=== PATIENT | female | born 1995 ===

== ENCOUNTER 2021-04-11 08:16 | Inpatient (IN) | payer OTHER ==
[2021-04-11] MEDS: Lactated Ringers 1,000 ML IV SCH ×3 (15:55→19:20)
[2021-04-11] MEDS ORDERED: Sodium Chloride 0.9% 20 ML SDV IV PRN (16:02)
[2021-04-11] MEDS ORDERED: Sodium Chloride 0.9% 2.5 ML Syringe FLUSH PRN (16:02)
[2021-04-11] MEDS ORDERED: Nalbuphine 10 MG/1 ML Vial IVPUSH PRN (16:02)
[2021-04-11] MEDS ORDERED: Sodium Chloride 0.9% 10 ML Syringe FLUSH PRN (16:02)
[2021-04-11] MEDS ORDERED: Lidocaine 1% 50 ML MDV INJECT PRN (16:02)
[2021-04-11] MEDS ORDERED: Carboprost Tromethamine 250 MCG/1 ML Amp IM PRN (16:02)
[2021-04-11] MEDS ORDERED: Ondansetron 4 MG/2 ML SDV IVPUSH PRN (16:02)
[2021-04-11] MEDS ORDERED: Tranexamic Acid 1,000 MG in Sodium Chloride 0.9% 100 ML IV PRN (16:02)
[2021-04-11] MEDS ORDERED: Methylergonovine 0.2 MG/1 ML Amp IM PRN (16:02)
[2021-04-11] MEDS ORDERED: Misoprostol 200 MCG Tab PO PRN (16:02)
[2021-04-11] MEDS ORDERED: Butorphanol 1 MG/ML SDV IVPUSH PRN (16:02)
[2021-04-11] MEDS ORDERED: Water For Irrigation,Sterile 1,000 ML Container IRR PRN (16:02)
[2021-04-11] MEDS ORDERED: Oxytocin/0.9 % Sodium Chloride 30 UNIT/500 ML BAG IV SCH (16:15)
[2021-04-11] MEDS ORDERED: Bupivacaine 0.25% 10 ML SDV ONE (16:49)
[2021-04-11] MEDS ORDERED: Ropivacaine HCl/PF 200 ML ONE (16:49)
--- NOTE | 2021-04-11 17:07 | PCM.PREANE ---
Preanesthetic Assessment - Anesthesia/Transfusion/Family Hx Anesthesia History: Prior Anesthesia Without Reaction Transfusion History: No Prior Transfusion(s) - Review of Systems General: No Symptoms Pulmonary: No Symptoms Cardiovascular: No Symptoms Gastrointestinal: No Symptoms Neurological: No Symptoms Other: Reports: None - Physical Assessment Height: 5 ft 4 in Weight: 83.007 kg ASA Class: 2 Mental Status: Alert & Oriented x3 Airway Class: Mallampati = 2 Dentition: Reports: Normal Dentition Thyro-Mental Finger Breadths: 3 Mouth Opening Finger Breadths: 3 ROM/Head Extension: Full Lungs: Clear to Auscultation, Normal Respiratory Effort Cardiovascular: Regular Rate, Regular Rhythm - Lab Values: Laboratory Last Values WBC 12.17 K/uL (4.0-11.0) H 04/11/21 15:50 RBC 4.29 M/uL (4.30-5.90) L 04/11/21 15:50 Hgb 12.6 g/dL (12.0-16.0) 04/11/21 15:50 Hct 37.8 % (36.0-46.0) 04/11/21 15:50 MCV 88.1 fL (80.0-98.0) 04/11/21 15:50 MCH 29.4 pg (27.0-32.0) 04/11/21 15:50 MCHC 33.3 g/dL (31.0-37.0) 04/11/21 15:50 RDW Std Deviation 45.4 fl (28.0-62.0) 04/11/21 15:50 RDW Coeff of Alex 14 % (11.0-15.0) 04/11/21 15:50 Plt Count 179 K/uL (150-400) 04/11/21 15:50 MPV 12.80 fL (7.40-12.00) H 04/11/21 15:50 Nucleated RBC % 0.0 /100WBC 04/11/21 15:50 Nucleated RBCs # 0 K/uL 04/11/21 15:50 Blood Type A POSITIVE 04/11/21 15:50 Antibody Screen NEGATIVE 04/11/21 15:50 - Allergies Allergies/Adverse Reactions: Allergies Allergy/AdvReac Type Severity Reaction Status Date / Time No Known Allergies Allergy Verified 04/11/21 08:46 - Acknowledgements Anesthesia Type Planned: Epidural Pt an Appropriate Candidate for the Planned Anesthesia: Yes Alternatives and Risks of Anesthesia Discussed w Pt/Guardian: Yes Pt/Guardian Understands and Agrees with Anesthesia Plan: Yes 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 USE Tobacco Use Status *Q: Never Tobacco User Second Hand Smoke Exposure: No Recreational Drug Use History: No - CURRENT (IN HOUSE) MEDS Current Meds: Current Medications Butorphanol Tartrate (Butorphanol 1 Mg/Ml Sdv) 1 mg IVPUSH Q1H PRN PRN Reason: Pain (severe 7-10) Carboprost Tromethamine (Carboprost Tromethamine 250 Mcg/1 Ml Amp) 250 mcg IM ASDIRECTED PRN PRN Reason: Post Hemorrhage Lactated Ringer's (Ringers, Lactated) 1,000 mls @ 150 mls/hr IV ASDIRECTED LAURA Last Admin: 04/11/21 16:39 Dose: 500 mls/hr Documented by: Oxytocin/Sodium Chloride (Oxytocin 30 Unit In Ns 0.9% 500 Ml Premix) 30 unit in 500 mls @ 999 mls/hr IV TITRATE [facility] Tranexamic Acid 1,000 mg/ (Sodium Chloride) 110 mls @ 660 mls/hr IV ONETIME PRN PRN Reason: Bleeding Lidocaine HCl (Lidocaine 1% 50 Ml Mdv) 50 ml INJECT ONETIME PRN PRN Reason: Laceration repair Methylergonovine Maleate (Methylergonovine 0.2 Mg/1 Ml Amp) 0.2 mg IM ASDIRECTED PRN PRN Reason: Post Hemorrhage Misoprostol (Misoprostol 200 Mcg Tab) 200 mcg PO ONETIME PRN PRN Reason: Post Hemorrhage Nalbuphine HCl (Nalbuphine 10 Mg/1 Ml Vial) 10 mg IVPUSH Q1H PRN PRN Reason: Pain (severe 7-10) Ondansetron HCl (Ondansetron 4 Mg/2 Ml Sdv) 4 mg IVPUSH Q6H PRN PRN Reason: Nausea/Vomiting Sodium Chloride (Sodium Chloride 0.9% 10 Ml Syringe) 10 ml FLUSH ASDIRECTED PRN PRN Reason: Keep Vein Open Sodium Chloride (Sodium Chloride 0.9% 2.5 Ml Syringe) 2.5 ml FLUSH ASDIRECTED PRN PRN Reason: Keep Vein Open Sodium Chloride (Sodium Chloride 0.9% 20 Ml Sdv) 10 ml IV ASDIRECTED PRN PRN Reason: IV Use Sterile Water (Water For Irrigation,Sterile 1,000 Ml Container) 1,000 ml IRR ASDIRECTED PRN PRN Reason: delivery Discontinued Medications Bupivacaine HCl (Bupivacaine 0.25% 10 Ml Sdv) Confirm Administered Dose 10 ml .ROUTE .Rally SoftwareMED ONE Stop: 04/11/21 16:50 Ropivacaine (Naropin 0.2%) Confirm Administered Dose 200 mls @ as directed .ROUTE .Rally SoftwareMED ONE Stop: 04/11/21 16:50
[2021-04-11] MEDS ORDERED: ePHEDrine 50 MG/ML SDV IVPUSH PRN (17:11)
--- NOTE | 2021-04-11 17:11 | PCM.SN.2 ---
- Pre-Procedure Checklist Attending Provider Aware: Yes Chart Reviewed: Yes Consent Signed: Yes Labs Reviewed: Yes VS/FHR Reviewed: Yes Patient Identification Confirmation Method: Reports: ID Band Visual, Verbal Patient Pt an Appropriate Candidate for the Planned Anesthesia: Yes Alternatives and Risks of Anesthesia Discussed w Pt/Guardian: Yes - Procedure Procedure Start Date: 04/11/21 Procedure Start Time: 16:[address]: Reports: Blood Pressure, Heart Rate, SPO2 Functional IV: Yes Bolus Infused (fluid type and amount): LR 1,000 Safety Measures: Reports: Patient Identified, Procedure Verified, Site Verified, Procedure Time Out Patient Position: Reports: Sitting Prep: Reports: Other (chloraprep stick) Local Anesthetic: Reports: Intradermal Wheal w Lidocaine 1% Regional Placement Level: Reports: L4-5 Needle: Reports: 17 g Touhy Approach: Reports: Midline Technique: Reports: CHASIDY Plastic Syringe Parasthesia: Reports: None Fluid Obtained: Reports: None Test Dose Time: 16:42 Test Dose Medication: Reports: Lidocaine 1.5% w Epinephrine 1:200,000 Test Dose Response: Reports: Negative Loading Dose Time: 16:46 Loading Dose Medication: Bupivacaine 0.25% 10ml in 2 separate doses Loading Dose Patient Position: semi-fowlers with MARTHA Continuous Infusion Start Time: 16:54 Continuous Infusion Medication: Ropivacaine 0.2% Continuous Infusion Rate: 15 ml/hr Patient Position Post Placement: Reports: Semi-fowlers/MARTHA Post-procedure Pain Level: 0 Level Achieved: T-10 VS and FHR Monitored in Unit Post Placement: Yes Procedure End Date: 04/11/21 Procedure End Time: 17:30 Procedure Comment: Pt. tolerated procedure well.
--- NOTE | 2021-04-11 17:11 | PCM.POSTAN ---
POST ANESTHESIA ASSESSMENT - MENTAL STATUS Mental Status: Alert, Oriented - RESPIRATORY Respiratory Status: Respiratory Rate WNL, Airway Patent, O2 Saturation Stable - CARDIOVASCULAR CV Status: Pulse Rate WNL, Blood Pressure Stable - GASTROINTESTINAL GI Status: No Symptoms - POST OP HYDRATION Hydration Status: Adequate & Stable
[2021-04-11] MEDS ORDERED: Ropivacaine/PF 400 MG/200 ML PCA EPIDUR SCH (17:15)
[2021-04-11] MEDS ORDERED: Acetaminophen 500 MG Tab PO PRN (19:47)
[2021-04-11] MEDS ORDERED: Bisacodyl 10 MG Supp RECTAL PRN (19:47)
[2021-04-11] MEDS ORDERED: Ibuprofen 400 MG Tab PO PRN (19:47)
[2021-04-11] MEDS ORDERED: Lanolin 100% Cream 7 GM Tube TOP PRN (19:47)
[2021-04-11] MEDS ORDERED: oxyCODONE 5 MG Tab PO PRN (19:47)
--- NOTE | 2021-04-11 19:52 | PCM.OPNOTE ---
- General Post-Op/Procedure Note Date of Surgery/Procedure: 04/11/21 Operative Procedure(s): /2nd MLL repaired Findings: Viable female APGARs 9, 9 weight 3150 gm. Spontaneous delivery of intact placenta with 3V cord Pre Op Diagnosis: 38/3 week IUP. Active labor Post-Op Diagnosis: Same Anesthesia Technique: Epidural Primary Surgeon: Danielle Oden EBL in mLs: 300 Complications: none known Condition: Good Free Text/Narrative:: Dictation [id number]
[2021-04-11] MEDS: Ibuprofen 800 MG Tab PO PRN (20:37)
--- NOTE | 2021-04-11 20:56 | OR ---
SURGEON: Danielle Oden M.D. DATE OF PROCEDURE: 04/11/2021 PREOPERATIVE DIAGNOSES: 1. 38 and 3-week intrauterine . 2. Active labor. POSTOPERATIVE DIAGNOSES: 1. 38 and 3-week intrauterine . 2. Active labor. PROCEDURES: Spontaneous vaginal delivery, and a second-degree midline laceration repaired. PRIMARY SURGEON: Danielle Oden M.D. ANESTHESIA: Epidural. ESTIMATED BLOOD LOSS: 300 mL. COMPLICATIONS: None known. FINDINGS: Viable female. scores 9 at one minute and 9 at five minutes. Weight 3150 g. Spontaneous delivery, intact placenta, 3-vessel cord. DISPOSITION: to nursery. Mom in LDRP. PROCEDURE IN DETAIL: Lamin is a 25-year-old, G4, P 2-0-1-2 at 38- 3/7 weeks' gestational age, who presented today with regular contractions. She was admitted, routine labs were drawn, IV hydration was initiated. When she became uncomfortable and dilated to 5 to 6 cm, she underwent regional anesthesia for epidural. She became more comfortable thereafter. heart tones remained category I. She continued to labor, and shortly after 7:00 p.m., she was found to be complete, 100% effaced, +2 station. She had spontaneous rupture of membranes shortly before that with clear fluid. I was called for delivery. Upon my arrival, the patient was placed in the modified dorsal lithotomy position. She was prepped and draped in the usual aseptic manner. With the next contraction, she was able to push and deliver 's head atraumatically spontaneously, followed by anterior shoulder, posterior shoulder, and remaining body without difficulty. The 's oropharynx and nares were bulb suctioned. The infant was handed off to her mother and attending nursery staff at her side. After a delay, the cord was clamped x2 and cut. Cord arterial, cord venous, and cord blood sampling were obtained. Light pressure was applied while the placenta was delivered spontaneously intact. Vigorous fundal uterine massage was applied while 30 units of Pitocin was delivered in 500 mL of IV fluid. Upon inspection of cervix, vaginal sidewalls, and perineum, there was found to be a second-degree midline laceration. This was repaired using 3-0 Vicryl in the usual fashion. The patient tolerated the procedure well. Hemostasis remained evident. She will remain in LDRP in stable condition. to nursery. MONAE / SAMREEN /[id number]
[2021-04-11] MEDS: Acetaminophen 500 MG Tab PO PRN (22:14)
[2021-04-11] MEDS: Benzocaine/Menthol 20%-0.5% Spray 78 GM Cannister TOP PRN (22:15)
[2021-04-11] MEDS: Witch Hazel Medicated Pads 40/Jar TOP PRN (22:15)
[2021-04-12] MEDS: Ibuprofen 800 MG Tab PO PRN ×3 (02:25→16:02)
--- NOTE | 2021-04-12 07:19 | PCM48HPAN ---
Post Anesthesia Note - EVALUATION WITHIN 48HRS OF ANESTHETIC Vital Signs in Normal Range: Yes Patient Participated in Evaluation: Yes Respiratory Function Stable: Yes Airway Patent: Yes Cardiovascular Function Stable: Yes Hydration Status Stable: Yes Pain Control Satisfactory: Yes Nausea and Vomiting Control Satisfactory: Yes Mental Status Recovered: Yes Vital Signs: Last Vital Signs Temp 96.7 F L 04/12/21 04:00 Pulse 58 L 04/12/21 04:00 Resp 16 04/12/21 04:00 BP 124/74 04/12/21 04:00 Pulse Ox 99 04/12/21 04:00
[2021-04-12] MEDS: Acetaminophen 500 MG Tab PO PRN ×3 (09:24→19:36)
[2021-04-12] MEDS: Docusate Sodium 100 MG Cap PO PRN ×2 (09:24→19:36)
--- NOTE | 2021-04-12 09:25 | PCM.PNPP ---
- General Info Date of Service: 04/12/21 Subjective Update: Cramping with otherwise no complaints. Baby is latching well. Minimal lochia. Functional Status: Reports: Pain Controlled, Tolerating Diet, Ambulating, Urinating - Review of Systems General: Reports: No Symptoms HEENT: Reports: No Symptoms Pulmonary: Reports: No Symptoms Cardiovascular: Reports: No Symptoms Gastrointestinal: Reports: No Symptoms Genitourinary: Reports: No Symptoms Musculoskeletal: Reports: No Symptoms Skin: Reports: No Symptoms Neurological: Reports: No Symptoms Psychiatric: Reports: No Symptoms - General Info Date of Service: 04/12/21 - Patient Data Vital Signs - Most Recent: Last Vital Signs Temp 35.9 C L 04/12/21 04:00 Pulse 58 L 04/12/21 04:00 Resp 16 04/12/21 04:00 BP 124/74 04/12/21 04:00 Pulse Ox 99 04/12/21 04:00 Weight - Most Recent: 83.007 kg I&O - Last 24 Hours: Intake & Output 04/11/21 04/12/21 04/12/21 22:59 06:59 14:59 Intake Total 650 Output Total 800 400 Balance -150 -400 Lab Results - Last 24 Hours: Laboratory Results - last 24 hr 04/11/21 04/11/21 04/11/21 Range/Units 15:15 15:50 15:50 WBC 12.17 H (4.0-11.0) K/uL RBC 4.29 L (4.30-5.90) M/uL Hgb 12.6 (12.0-16.0) g/dL Hct 37.8 (36.0-46.0) % MCV 88.1 (80.0-98.0) fL MCH 29.4 (27.0-32.0) pg MCHC 33.3 (31.0-37.0) g/dL RDW Std Deviation 45.4 (28.0-62.0) fl RDW Coeff of Alex 14 (11.0-15.0) % Plt Count 179 (150-400) K/uL MPV 12.80 H (7.40-12.00) fL Nucleated RBC % 0.0 /100WBC Nucleated RBCs # 0 K/uL Cord ABG pH (7.18-7.38) Cord ABG Base Excess (-10--2) Cord VBG pH (7.25-7.45) Cord VBG Base Excess (-10--2) SARS-CoV-2 RNA (VIC) NEGATIVE (NEGATIVE) Blood Type A POSITIVE Antibody Screen NEGATIVE 04/11/21 04/12/21 Range/Units 19:27 06:07 WBC (4.0-11.0) K/uL RBC (4.30-5.90) M/uL Hgb 10.8 L (12.0-16.0) g/dL Hct 32.3 L (36.0-46.0) % MCV (80.0-98.0) fL MCH (27.0-32.0) pg MCHC (31.0-37.0) g/dL RDW Std Deviation (28.0-62.0) fl RDW Coeff of Alex (11.0-15.0) % Plt Count (150-400) K/uL MPV (7.40-12.00) fL Nucleated RBC % /100WBC Nucleated RBCs # K/uL Cord ABG pH 7.210 (7.18-7.38) Cord ABG Base Excess -5 (-10--2) Cord VBG pH 7.373 (7.25-7.45) Cord VBG Base Excess -2 (-10--2) SARS-CoV-2 RNA (VIC) (NEGATIVE) Blood Type Antibody Screen Med Orders - Current: Current Medications Acetaminophen (Acetaminophen 500 Mg Tab) 500 mg PO Q4H PRN PRN Reason: Pain (mild 1-3) Acetaminophen (Acetaminophen 500 Mg Tab) 1,000 mg PO Q4H PRN PRN Reason: Pain (mild 1-3) Last Admin: 04/11/21 22:14 Dose: 1,000 mg Documented by: Benzocaine/Menthol (Benzocaine/Menthol 20%-0.5% [place] 78 Gm Cannister) 78 gm TOP ASDIRECTED PRN PRN Reason: Perineal Comfort Measure Last Admin: 04/11/21 22:15 Dose: 1 applic Documented by: Bisacodyl (Bisacodyl 10 Mg Supp) 10 mg RECTAL ONETIME PRN PRN Reason: Constipation Butorphanol Tartrate (Butorphanol 1 Mg/Ml Sdv) 1 mg IVPUSH Q1H PRN PRN Reason: Pain (severe 7-10) Docusate Sodium (Docusate Sodium 100 Mg Cap) 100 mg PO Q12H PRN PRN Reason: Constipation Emollient Ointment (Lanolin 100% Cream 7 Gm Tube) 0 gm TOP ASDIRECTED PRN PRN Reason: Sore Nipples Last Admin: 04/11/21 22:14 Dose: 1 applic Documented by: Ephedrine Sulfate (Ephedrine 50 Mg/Ml Sdv) 10 mg IVPUSH Q1M PRN PRN Reason: Hypotension Lactated Ringer's (Ringers, Lactated) 1,000 mls @ 150 mls/hr IV ASDIRECTED [facility] Last Admin: 04/11/21 19:20 Dose: 150 mls/hr Documented by: Oxytocin/Sodium Chloride (Oxytocin 30 Unit In Ns 0.9% 500 Ml Premix) 30 unit in 500 mls @ 999 mls/hr IV TITRATE [facility] Last Admin: 04/11/21 19:20 Dose: 999 mls/hr Documented by: Tranexamic Acid 1,000 mg/ (Sodium Chloride) 110 mls @ 660 mls/hr IV ONETIME PRN PRN Reason: Bleeding Ibuprofen (Ibuprofen 400 Mg Tab) 400 mg PO Q4H PRN PRN Reason: Pain (mild 1-3) Ibuprofen (Ibuprofen 800 Mg Tab) 800 mg PO Q6H PRN PRN Reason: Cramping Last Admin: 04/12/21 02:25 Dose: 800 mg Documented by: Methylergonovine Maleate (Methylergonovine 0.2 Mg/1 Ml Amp) 0.2 mg IM ASDIRECTED PRN PRN Reason: Post Hemorrhage Miscellaneous Medication (Phenylephrine Hcl In 0.9% Nacl 1 Mg/10 Ml Syringe) 0.1 mg IVPUSH Q1M PRN PRN Reason: Hypotension Misoprostol (Misoprostol 200 Mcg Tab) 200 mcg PO ONETIME PRN PRN Reason: Post Hemorrhage Nalbuphine HCl (Nalbuphine 10 Mg/1 Ml Vial) 10 mg IVPUSH Q1H PRN PRN Reason: Pain (severe 7-10) Ondansetron HCl (Ondansetron 4 Mg/2 Ml Sdv) 4 mg IVPUSH Q6H PRN PRN Reason: Nausea/Vomiting Last Admin: 04/11/21 23:08 Dose: 4 mg Documented by: Oxycodone HCl (Oxycodone 5 Mg Tab) 5 mg PO Q2H PRN PRN Reason: Pain (severe 7-10) Ropivacaine (Ropivacaine/Pf 400 Mg/200 Ml Grain Processor) 400 mg EPIDUR ASDIRECTED LUARA Sodium Chloride (Sodium Chloride 0.9% 10 Ml Syringe) 10 ml FLUSH ASDIRECTED PRN PRN Reason: Keep Vein Open Sodium Chloride (Sodium Chloride 0.9% 2.5 Ml Syringe) 2.5 ml FLUSH ASDIRECTED PRN PRN Reason: Keep Vein Open Sodium Chloride (Sodium Chloride 0.9% 20 Ml Sdv) 10 ml IV ASDIRECTED PRN PRN Reason: IV Use Sterile Water (Water For Irrigation,Sterile 1,000 Ml Container) 1,000 ml IRR ASDIRECTED PRN PRN Reason: delivery Witch Cammy (Witch Cammy Medicated Pads 40/Jar) 1 pad TOP ASDIRECTED PRN PRN Reason: comfort care Last Admin: 04/11/21 22:15 Dose: 1 applic Documented by: Discontinued Medications Bupivacaine HCl (Bupivacaine 0.25% 10 Ml Sdv) Confirm Administered Dose 10 ml .ROUTE .STK-MED ONE Stop: 04/11/21 16:50 Carboprost Tromethamine (Carboprost Tromethamine 250 Mcg/1 Ml Amp) 250 mcg IM ASDIRECTED PRN PRN Reason: Post Hemorrhage Ropivacaine (Naropin 0.2%) Confirm Administered Dose 200 mls @ as directed .ROUTE .STK-MED ONE Stop: 04/11/21 16:50 Lidocaine HCl (Lidocaine 1% 50 Ml Mdv) 50 ml INJECT ONETIME PRN PRN Reason: Laceration repair - Interaction Disposition, : in Room with Family Infant Interaction: Holding Infant Feeding: Breastfed ; Nursed Well Support Person: - Recovery Exam Fundal Tone: Firm Fundal Level: At Umbilicus Fundal Placement: Midline Lochia Amount: Small Lochia Color: Rubra/Red Perineum Description: Other (see below) Other Perinuem Description: 2nd degree laceration Episiotomy/Laceration: Approximated Bladder Status: Nonpalpable Urinary Elimination: Straight Catheterization - Exam General: Alert, Oriented HEENT: Pupils Equal Neck: Supple Lungs: Normal Respiratory Effort GI/Abdominal Exam: Soft, Non-Tender, No Organomegaly, No Distention, No Mass Extremities: Normal Inspection, Non-Tender, No Pedal Edema, Normal Capillary Refill Skin: Warm, Dry, Intact Neurological: No New Focal Deficit Psy/Mental Status: Alert, Normal Affect, Normal Mood - Problem List & Annotations (1) Vaginal delivery SNOMED Code(s): 743353772 Code(s): O80 - ENCOUNTER FOR FULL-TERM UNCOMPLICATED DELIVERY Status: Acute Current Visit: Yes - Problem List Review Problem List Initiated/Reviewed/Updated: Yes - My Orders Last 24 Hours: My Active Orders 04/11/21 08:41 Patient Status [ADT] Routine Resuscitation Status Routine 04/11/21 15:50 RPR (SYPHILIS SERO) W/ RFLX [REF] Routine 04/11/21 16:02 Butorphanol [Stadol] 1 mg IVPUSH Q1H PRN Methylergonovine [Methergine] 0.2 mg IM ASDIRECTED PRN Nalbuphine [Nubain] 10 mg IVPUSH Q1H PRN Ondansetron [Zofran] 4 mg IVPUSH Q6H PRN Sodium Chloride 0.9% [Normal Saline] 10 ml IV ASDIRECTED PRN Sodium Chloride 0.9% [Saline Flush] 10 ml FLUSH ASDIRECTED PRN Sodium Chloride 0.9% [Saline Flush] 2.5 ml FLUSH ASDIRECTED PRN Tranexamic Acid [Cyklokapron] 1,000 mg Sodium Chloride 0.9% [Normal Saline] 100 ml IV ONETIME Water For Irrigation,Sterile [Sterile Water for Irrigation] 1,000 ml IRR ASDIRECTED PRN miSOPROStoL [Cytotec] 200 mcg PO ONETIME PRN Peripheral IV Insertion Adult [OM.PC] Routine 04/11/21 16:15 Lactated Ringers [Ringers, Lactated] 1,000 ml IV ASDIRECTED Oxytocin/0.9 % Sodium Chloride [Oxytocin 30 Unit in NS 0.9% 500 ML Premix] 30 unit in 500 ml IV TITRATE 04/11/21 17:02 Admission Status [Patient Status] [ADT] Routine - Assessment Assessment:: PPD#1 after , stable, minimal lochia, tolerating diet. Would like to go home today if baby is discharged - Plan Plan:: Discharge instructions reviewed.
[2021-04-12] MEDS: Benzocaine/Menthol 20%-0.5% Spray 78 GM Cannister TOP PRN (15:04)
[2021-04-12] MEDS: Witch Hazel Medicated Pads 40/Jar TOP PRN (15:05)
[2021-04-13] MEDS: Ibuprofen 800 MG Tab PO PRN ×2 (00:34→07:47)
[2021-04-13] MEDS: Acetaminophen 500 MG Tab PO PRN (05:06)
[2021-04-13] MEDS: Docusate Sodium 100 MG Cap PO PRN (07:58)
--- NOTE | 2021-04-13 09:31 | PCM.PNPP ---
- General Info Date of Service: 04/13/21 Subjective Update: She denies any complains , breast and bottle feeding , normal lochia . Good pain control Functional Status: Reports: Pain Controlled, Tolerating Diet, Ambulating, Urinating - Review of Systems General: Reports: No Symptoms HEENT: Reports: No Symptoms Pulmonary: Reports: No Symptoms Cardiovascular: Reports: No Symptoms Gastrointestinal: Reports: No Symptoms Genitourinary: Reports: No Symptoms Musculoskeletal: Reports: No Symptoms Skin: Reports: No Symptoms Neurological: Reports: No Symptoms Psychiatric: Reports: No Symptoms - General Info Date of Service: 04/13/21 - Patient Data Vital Signs - Most Recent: Last Vital Signs Temp 36.2 C 04/13/21 08:09 Pulse 61 04/13/21 08:09 Resp 18 04/13/21 08:09 BP 110/67 04/13/21 08:09 Pulse Ox 98 04/13/21 08:09 Weight - Most Recent: 83.007 kg Med Orders - Current: Current Medications Acetaminophen (Acetaminophen 500 Mg Tab) 500 mg PO Q4H PRN PRN Reason: Pain (mild 1-3) Acetaminophen (Acetaminophen 500 Mg Tab) 1,000 mg PO Q4H PRN PRN Reason: Pain (mild 1-3) Last Admin: 04/13/21 05:06 Dose: 1,000 mg Documented by: Benzocaine/Menthol (Benzocaine/Menthol 20%-0.5% [place] 78 Gm Cannister) 78 gm TOP ASDIRECTED PRN PRN Reason: Perineal Comfort Measure Last Admin: 04/12/21 15:04 Dose: 1 applic Documented by: Bisacodyl (Bisacodyl 10 Mg Supp) 10 mg RECTAL ONETIME PRN PRN Reason: Constipation Butorphanol Tartrate (Butorphanol 1 Mg/Ml Sdv) 1 mg IVPUSH Q1H PRN PRN Reason: Pain (severe 7-10) Docusate Sodium (Docusate Sodium 100 Mg Cap) 100 mg PO Q12H PRN PRN Reason: Constipation Last Admin: 04/13/21 07:58 Dose: 100 mg Documented by: Emollient Ointment (Lanolin 100% Cream 7 Gm Tube) 0 gm TOP ASDIRECTED PRN PRN Reason: Sore Nipples Last Admin: 04/11/21 22:14 Dose: 1 applic Documented by: Ephedrine Sulfate (Ephedrine 50 Mg/Ml Sdv) 10 mg IVPUSH Q1M PRN PRN Reason: Hypotension Lactated Ringer's (Ringers, Lactated) 1,000 mls @ 150 mls/hr IV ASDIRECTED [facility] Last Admin: 04/11/21 19:20 Dose: 150 mls/hr Documented by: Oxytocin/Sodium Chloride (Oxytocin 30 Unit In Ns 0.9% 500 Ml Premix) 30 unit in 500 mls @ 999 mls/hr IV TITRATE [facility] Last Admin: 04/11/21 19:20 Dose: 999 mls/hr Documented by: Tranexamic Acid 1,000 mg/ (Sodium Chloride) 110 mls @ 660 mls/hr IV ONETIME PRN PRN Reason: Bleeding Ibuprofen (Ibuprofen 400 Mg Tab) 400 mg PO Q4H PRN PRN Reason: Pain (mild 1-3) Ibuprofen (Ibuprofen 800 Mg Tab) 800 mg PO Q6H PRN PRN Reason: Cramping Last Admin: 04/13/21 07:47 Dose: 800 mg Documented by: Methylergonovine Maleate (Methylergonovine 0.2 Mg/1 Ml Amp) 0.2 mg IM ASDIRECTED PRN PRN Reason: Post Hemorrhage Miscellaneous Medication (Phenylephrine Hcl In 0.9% Nacl 1 Mg/10 Ml Syringe) 0.1 mg IVPUSH Q1M PRN PRN Reason: Hypotension Misoprostol (Misoprostol 200 Mcg Tab) 200 mcg PO ONETIME PRN PRN Reason: Post Hemorrhage Nalbuphine HCl (Nalbuphine 10 Mg/1 Ml Vial) 10 mg IVPUSH Q1H PRN PRN Reason: Pain (severe 7-10) Ondansetron HCl (Ondansetron 4 Mg/2 Ml Sdv) 4 mg IVPUSH Q6H PRN PRN Reason: Nausea/Vomiting Last Admin: 04/11/21 23:08 Dose: 4 mg Documented by: Oxycodone HCl (Oxycodone 5 Mg Tab) 5 mg PO Q2H PRN PRN Reason: Pain (severe 7-10) Ropivacaine (Ropivacaine/Pf 400 Mg/200 Ml Cargo Operations Agent) 400 mg EPIDUR ASDIRECTED [facility] Sodium Chloride (Sodium Chloride 0.9% 10 Ml Syringe) 10 ml FLUSH ASDIRECTED PRN PRN Reason: Keep Vein Open Sodium Chloride (Sodium Chloride 0.9% 2.5 Ml Syringe) 2.5 ml FLUSH ASDIRECTED PRN PRN Reason: Keep Vein Open Sodium Chloride (Sodium Chloride 0.9% 20 Ml Sdv) 10 ml IV ASDIRECTED PRN PRN Reason: IV Use Sterile Water (Water For Irrigation,Sterile 1,000 Ml Container) 1,000 ml IRR ASDIRECTED PRN PRN Reason: delivery Witch Cammy (Witch Cammy Medicated Pads 40/Jar) 1 pad TOP ASDIRECTED PRN PRN Reason: comfort care Last Admin: 04/12/21 15:05 Dose: 1 applic Documented by: Discontinued Medications Bupivacaine HCl (Bupivacaine 0.25% 10 Ml Sdv) Confirm Administered Dose 10 ml .ROUTE .STK-MED ONE Stop: 04/11/21 16:50 Carboprost Tromethamine (Carboprost Tromethamine 250 Mcg/1 Ml Amp) 250 mcg IM ASDIRECTED PRN PRN Reason: Post Hemorrhage Ropivacaine (Naropin 0.2%) Confirm Administered Dose 200 mls @ as directed .ROUTE .STK-MED ONE Stop: 04/11/21 16:50 Lidocaine HCl (Lidocaine 1% 50 Ml Mdv) 50 ml INJECT ONETIME PRN PRN Reason: Laceration repair - Infant Interaction Infant Disposition, : [place] in Room with Family Infant Interaction: Holding Infant Feeding: Breastfed ; Nursed Well Support Person: - Recovery Exam Fundal Tone: Firm Fundal Level: At Umbilicus Fundal Placement: Midline Lochia Amount: Scant, Small Lochia Color: Rubra/Red Perineum Description: Other (see below) Other Perinuem Description: 2nd degree lac Episiotomy/Laceration: Approximated Bladder Status: Voiding Urinary Elimination: Voided - Exam General: Alert HEENT: Pupils Equal Neck: Supple Lungs: Clear to Auscultation, Normal Respiratory Effort Cardiovascular: Regular Rate, Regular Rhythm GI/Abdominal Exam: Normal Bowel Sounds Neurological: No New Focal Deficit - Problem List & Annotations (1) Vaginal delivery SNOMED Code(s): 797791719 Code(s): O80 - ENCOUNTER FOR FULL-TERM UNCOMPLICATED DELIVERY Status: Acute Current Visit: Yes - Problem List Review Problem List Initiated/Reviewed/Updated: Yes - Assessment Assessment:: PPD#2 after , stable, minimal lochia, tolerating diet. - Plan Plan:: Continue care Pain control as indicated Discharge instructions given .
== END 2021-04-13 10:44 | disposition home or self-care (01) | DRG 807 ==
LOC: MW.OBCHECK 08:16 → MW.OB 08:16 → MW.OBCHECK 17:02 → MW.OB 17:02 → OBSVTOIN 19:27 → MW.OB 04-12 00:53
PROVIDERS: ADMIT Obstetrics & Gynecology; ATTEND Obstetrics & Gynecology
PROC: 10E0XZZ Delivery of Products of Conception, External Approach (ICD-10-PCS; principal; 2021-04-11)
PROC: 0KQM0ZZ Repair Perineum Muscle, Open Approach (ICD-10-PCS; 2021-04-11)
PROC: 3E0R3BZ Introduction of Anesthetic Agent into Spinal Canal, Percutaneous Approach (ICD-10-PCS; 2021-04-11)
PROC: 00HU33Z Insertion of Infusion Device into Spinal Canal, Percutaneous Approach (ICD-10-PCS; 2021-04-11)
DX: O70.1 Second degree perineal laceration during delivery (principal); Z37.0 Single live birth; Z3A.38 38 weeks gestation of pregnancy; Z20.822 Contact with and (suspected) exposure to COVID-19
CPT/HCPCS: 36415; 51702; 59025; 59409; 82803; 85014; 85018; 85027; 86592; 86850; 86900; 86901; A9270-GY; J2405; J2590; J2795; J3490; J7120; U0002